=== PATIENT | male | born 1935 | race Caucasian/White ===

== ENCOUNTER 2017-01-01 11:14 | Inpatient (IN) | payer OTHER ==
[2016-12-30 20:47] LABS: BASOPHILS 0.5 %; BASOPHILS ABSOLUTE 0.04 10/3/uL (0.0-0.16); EOSINOPHILS 2.8 %; EOSINOPHILS ABSOLUTE 0.23 10/3/uL (0.0-0.53); IMMATURE GRANULOCYTES ABSOLUTE 0.08 10/3/uL (0.0-0.11); LYMPHOCYTES 27.3 %; LYMPHOCYTES ABSOLUTE 2.26 10/3/uL (0.67-4.30); MEAN CORPUS HGB CONC 35.2 g/dL (32.0-36.0); MEAN CORPUSCULAR HEMOGLOB 33.6 pg (26.0-34.0); MEAN CORPUSCULAR VOLUME 95.3 fL (80-100); MEAN PLATELET VOLUME 13.2 fL (9.2-13.0); MONOCYTES 11.1 %; MONOCYTES ABSOLUTE 0.92 10/3/uL (0.21-1.20); NEUTROPHILS 57.3 %; NEUTROPHILS ABSOLUTE 4.75 10/3/uL (2.02-8.40); RBC DISTRIBUTION WIDTH 13.8 % (12.0-16.0); WHITE BLOOD CELLS 8.3 10/3/uL (4.5-10.5)
[2016-12-30 20:49] LABS: HEMATOCRIT 42.9 % (40.0-51.0); HEMOGLOBIN 15.1 g/dL (13.6-17.8); MANUAL DIFF NO %; PLATELET COUNT 185 10/3/uL (150-400)
[2016-12-30 20:55] LABS: BUN (BLOOD UREA NITROGEN) 17 MG/DL (6-23); CALCIUM, SERUM 8.8 MG/DL (8.5-10.4); CHLORIDE, SERUM 104 MMOL/L (96-112); CO2 (CARBON DIOXIDE) 27 MMOL/L (24-34); CREATININE 1.06 MG/DL (0.70-1.30); GFR AFRICAN AMERICAN 75 ML/MIN (>=60); GFR NON AFRICAN AMERICAN 65 ML/MIN (>=60); GLUCOSE, SERUM 107 MG/DL (60-99); POTASSIUM, SERUM 4.3 MMOL/L (3.5-5.3); SODIUM, SERUM 142 MMOL/L (135-148)
[2016-12-30 22:31] LABS: LYMPHOCYTES 37 %; LYMPHOCYTES ABSOLUTE (CALC) 3.07 10/3/uL (0.67-4.30); MONOCYTES 5 %; MONOCYTES ABSOLUTE (CALC) 0.42 10/3/uL (0.21-1.20); NEUTROPHILS ABSOLUTE (CALC) 4.81 10/3/uL (2.02-8.40); PLATELET ESTIMATE ADQ (ADEQUATE); SEGMENTED NEUTROPHIL (0) 58 %; TOTAL NUCLEATED CELLS 100
[2016-12-30 22:32] LABS: RBC MORPHOLOGY NORM (NORMAL)
--- NOTE | ~2017-01-01 | DS ---
Discharge Summary [facility] [address] [place]. 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 SECONDARY DIAGNOSIS: Diet-controlled diabetes mellitus. REASON FOR ADMISSION: This is an 81-year-old male underwent a 4-hour surgery for removal of a parotid malignancy and a selective neck dissection. He was admitted for pain control and monitoring for bleeding. During his hospital course, the patient demonstrated full facial nerve function. Pain was controlled easily with oral pain medicines. He began tolerating a soft mechanical diet the day after surgery, and is ambulatory. His OVI drain is putting out serosanguineous fluid, and his incisions are healing well. His discharge medication list was reviewed and signed. I spoke with the family. As far as plan of care, the patient is able to get the incision wet with a shower, but not soak it in a bathtub. I asked them to keep it covered with Vaseline. We taught them drain care prior to discharge. The drain, I was planning to be removed in the clinic next week. Postoperative appointment was discussed and will be next week with me in my office, at that time, we will remove the drain and the lisa. DISCHARGE DIET: Soft mechanical. DISCHARGE ACTIVITY: Lift nothing heavier than 10 pounds. PS/MODL James Ayala MD / [id number] CC: James Ayala MD
--- NOTE | ~2017-01-01 | OP ---
Record Of Operation [facility] [address] [facility] [place]. [address] NAME: RUPERTO GABRIEL : 34 STATUS : ADM IN [facility]#: [id number] AGE: 81 ADM/REG DATE : 01/01/17 MR#: [id number] REPORT SERV DATE: 01/01/17 DICTATED BY: JAMES AYALA DATE: 01/01/17 REPORT STATUS : Draft TRANSCRIBED BY: PARISH DATE: 01/01/17 DATE OF PROCEDURE: 01/01/2017 SERVICE: Otolaryngology. PREOPERATIVE DIAGNOSIS: Right parotid malignancy. POSTOPERATIVE DIAGNOSIS: Right parotid malignancy. PROCEDURE: Right superficial parotidectomy with modified radical neck dissection, dissected levels 1 through 3. STATEMENT OF MEDICAL NECESSITY: This is an 81-year-old male, presented to my office with a three-month history of growing parotid mass. 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 Given the findings, I recommended the above surgery. The patient was discussed with the tumor board and this was the overall recommendation. The patient had been seen by radiation oncologist, PET scan had been performed prior to surgery as well, did not show any metastatic disease and it was localized to the tumor. The neck dissection was deemed as appropriate given the malignancy. OPERATION: 1. Right superficial parotidectomy. 2. Selective neck dissection, levels 1 through 3. GROVE WORKER: Rhea. ANESTHESIA: General endotracheal anesthesia. ESTIMATED BLOOD LOSS: 30 mL. SPECIMENS: 1. Right parotidectomy. 2. Level 1B. 3. Level 2B and level 2A. 4. Level 3B and 3A. COMPLICATIONS: None. FINDINGS: The patient's facial nerve was tracked out after the dissection was completed, stimulation of the trunk of the facial nerve resulted in twitches in all three zones of the facial nerve including the zygomatic, buccal, mental, and marginal mandibular and frontal. The tumor was very thick with some surrounding desmoplastic change. It was directly over a branch that when stimulated, stimulated the buccal nerve. This had to be sacrificed as it was adherent to the tumor, however, the patient did still stimulate the buccal nerve regardless of this, it was sectioned very distal in the parotid gland. The neck dissection went well. The lingual nerve, the hypoglossal nerve, and accessory nerve were all found and Record Of Operation [facility] [address] [facility] [place]. [address] NAME: RUPERTO GABRIEL : 34 STATUS : ADM IN PAT#: [id number] AGE: 81 ADM/REG DATE : 01/01/17 MR#: [id number] REPORT SERV DATE: 01/01/17 DICTATED BY: JAMES AYALA DATE: 01/01/17 REPORT STATUS : Draft TRANSCRIBED BY: MODL DATE: 01/01/17 preserved. There were no grossly abnormal lymph nodes during the dissection statement of medical necessity as above. STATEMENT OF OPERATION: The patient was brought to the operating room in supine position, transferred to the operating table. All pressure points were padded and general endotracheal anesthesia was established. His neck was placed in slight extension and turned to the left. The NIM monitor was used. The NIM monitors were placed in the orbicularis oculi and orbicularis yeimi and grounded and they were functioning well before and throughout the surgery. An incision was marked out in a modified Titi fashion down the pretracheal crease and around in standard hockey-stick for neck dissection. It was injected with 8 mL of 1% lidocaine with epinephrine. The patient was then prepped and draped in usual fashion. A 15 blade was used to incise along the marked incision through the level of platysma, a superior flap was elevated in the subplatysmal and sub-SMAS plane fully exposing the parotid gland. Next, the soft tissue was dissected anteriorly away from the tragus down in the tympanomastoid groove. Wide dissection was performed down to the digastric muscle so that good visualization could be had. The nerve was found as it came out of the stylomastoid foramen. The parotid gland was then dissected off carefully starting at the superior branch. This was primarily where the tumor was located. As I moved off the superior branch and went down the inferior branch, I found the marginal mandibular nerve and dissected it out throughout its length. The parotid gland was removed. There was a single branch that was attached to the undersurface of the nerve that was sectioned and kept with the nerve. It stimulated the buccal region. After the parotid gland was completely removed, a stimulation of the trunk revealed that all facial muscles appeared to be moving well. Next, selective neck dissection was performed. The soft tissue plane was developed between the digastric and the sternocleidomastoid muscle. The accessory nerve was identified, level 2b was dissected out carefully and dunked under the accessory nerve. Next, the lymph node packet between the base of the neck, the sternocleidomastoid, and the jugular vein were gently dissected off the floor of the neck above the level of the sympathetic nerve branches. It was dissected out over the internal jugular vein down to the level of the omohyoid muscle. I did not section the omohyoid muscle. The lymph node pack was then further developed over the anterior neck including the fiber fatty tissue overlying the strap muscles. Then, with the marginal mandibular nerve retracted superiorly, I dissected along the border of the mandible fully exposing the anterior belly of the digastric and mylohyoid muscle. Then, the mylohyoid muscle was retracted anteriorly. The submandibular gland level 2b lymph pocket was dissected out preserving the lingual nerve, also preserving the hypoglossal nerve. Once this was removed, the border along the posterior belly gastric was developed and the remainder of the lymph node dissection was removed. It was into different parts and passed off for permanent section. During the dissection of the parotid, I did remove a single deep lymph node, was in the deep parotid. I sent this for frozen and it was found to be benign. I also removed a separate tail of parotid node and sent it separately for permanent evaluation. The wound was irrigated thoroughly. Hemostasis was obtained with a bipolar. A Harmonic scalp was used throughout most of the dissection. A 10 flat fully perforated drain was placed in the base of the right neck. The skin was then closed in three layers first closing the platysma and SMAS layer with interrupted buried 3-0 Vicryl sutures followed by the deep dermal layer with interrupted buried 4-0 Vicryl sutures. Finally, the skin was reapproximated with skin lisa all the way up to the ear. The preauricular incision was closed with 5-0 fast absorbing gut Record Of Operation [place] [id number] [facility] [place]. [address] NAME: RUPERTO GABRIEL : 34 STATUS : ADM IN PAT#: [id number] AGE: 81 ADM/REG DATE : 01/01/17 MR#: [id number] REPORT SERV DATE: 01/01/17 DICTATED BY: JAMES AYALA DATE: 01/01/17 REPORT STATUS : Draft TRANSCRIBED BY: PARISH DATE: 01/01/17 sutures. The drain held good suction on its own with bulb suction at the end of the case. The wound was dressed with bacitracin and a drain sponge was applied underneath the drain. The drain was secured with a 2-0 silk stitch. This concluded the case. I also decided to place a Dobbhoff feeding tube in the left side. This was done down to 70 cm, it was affixed to his nose with a standard Dobbhoff bandage. He tolerated the procedure well. He was turned over to Anesthesia where he awoke, was extubated, and transferred to the PACU in stable condition. PS/PARISH James Ayala MD / [id number] CC: James Ayala MD
[~2017-01-01 11:14] MED LIST: GLUCPH PO; LIPITOR10 PO; PRILO PO; PROZAC PO; ROXICODONE15 MG PO; UROXATRAL PO
[2017-01-02 06:08] LABS: BASOPHILS 0 %; EOSINOPHILS 0 %; HEMATOCRIT 38.7 % (40.0-51.0); HEMOGLOBIN 13.4 g/dL (13.6-17.8); IMMATURE GRANULOCYTES 0.2 %; IMMATURE GRANULOCYTES ABSOLUTE 0.03 10/3/uL (0.0-0.11); LYMPHOCYTES 8.3 %; LYMPHOCYTES ABSOLUTE 1.08 10/3/uL (0.67-4.30); MANUAL DIFF NO %; MEAN CORPUS HGB CONC 34.6 g/dL (32.0-36.0); MEAN CORPUSCULAR HEMOGLOB 32.8 pg (26.0-34.0); MEAN CORPUSCULAR VOLUME 94.6 fL (80-100); MEAN PLATELET VOLUME 10.3 fL (9.2-13.0); MONOCYTES 7.8 %; MONOCYTES ABSOLUTE 1.01 10/3/uL (0.21-1.20); NEUTROPHILS 83.7 %; NEUTROPHILS ABSOLUTE 10.91 10/3/uL (2.02-8.40); PLATELET COUNT 222 10/3/uL (150-400); RBC DISTRIBUTION WIDTH 13.6 % (12.0-16.0); RED CELL COUNT 4.09 10/6/uL (4.7-6.1)
[2017-01-02 07:03] LABS: BUN (BLOOD UREA NITROGEN) 17 MG/DL (6-23); CHLORIDE, SERUM 104 MMOL/L (96-112); CO2 (CARBON DIOXIDE) 25 MMOL/L (24-34); CREATININE 1.27 MG/DL (0.70-1.30); GFR AFRICAN AMERICAN 61 ML/MIN (>=60); GFR NON AFRICAN AMERICAN 52 ML/MIN (>=60); GLUCOSE, SERUM 212 MG/DL (60-99); POTASSIUM, SERUM 4.7 MMOL/L (3.5-5.3); SODIUM, SERUM 140 MMOL/L (135-148)
[2017-01-03 05:49] LABS: BASOPHILS 0.2 %; BASOPHILS ABSOLUTE 0.02 10/3/uL (0.0-0.16); EOSINOPHILS 0.3 %; EOSINOPHILS ABSOLUTE 0.04 10/3/uL (0.0-0.53); HEMATOCRIT 36.8 % (40.0-51.0); HEMOGLOBIN 12.8 g/dL (13.6-17.8); IMMATURE GRANULOCYTES 0.2 %; IMMATURE GRANULOCYTES ABSOLUTE 0.02 10/3/uL (0.0-0.11); LYMPHOCYTES 25.7 %; LYMPHOCYTES ABSOLUTE 3.09 10/3/uL (0.67-4.30); MANUAL DIFF NO %; MEAN CORPUS HGB CONC 34.8 g/dL (32.0-36.0); MEAN CORPUSCULAR VOLUME 94.8 fL (80-100); MEAN PLATELET VOLUME 10.1 fL (9.2-13.0); MONOCYTES 13.1 %; MONOCYTES ABSOLUTE 1.57 10/3/uL (0.21-1.20); NEUTROPHILS 60.5 %; NEUTROPHILS ABSOLUTE 7.29 10/3/uL (2.02-8.40); PLATELET COUNT 209 10/3/uL (150-400); RBC DISTRIBUTION WIDTH 13.5 % (12.0-16.0); RED CELL COUNT 3.88 10/6/uL (4.7-6.1)
[2017-01-03 06:02] LABS: BUN (BLOOD UREA NITROGEN) 17 MG/DL (6-23); CALCIUM, SERUM 8.1 MG/DL (8.5-10.4); CHLORIDE, SERUM 107 MMOL/L (96-112); CO2 (CARBON DIOXIDE) 29 MMOL/L (24-34); CREATININE 1.17 MG/DL (0.70-1.30); GFR AFRICAN AMERICAN 67 ML/MIN (>=60); GFR NON AFRICAN AMERICAN 58 ML/MIN (>=60); POTASSIUM, SERUM 4.1 MMOL/L (3.5-5.3); SODIUM, SERUM 144 MMOL/L (135-148)
[2017-01-03 06:04] LABS: GLUCOSE, SERUM 145 MG/DL (60-99)
[2017-01-03] MEDS ORDERED: PCET PO (12:08)
== END 2017-01-03 13:14 | disposition home or self-care (01) | DRG 130 ==
LOC: SDC/OF 11:14 → PACU 19:02 → 4SO 21:25
PROVIDERS: Otolaryngology; Specialist
PROC: 0CB80ZZ Excision of Right Parotid Gland, Open Approach (ICD-10-PCS; principal; 2017-01-01 13:00)
PROC: 07T10ZZ Resection of Right Neck Lymphatic, Open Approach (ICD-10-PCS; principal; 2017-01-01 13:00)
DX: C07 Malignant neoplasm of parotid gland (principal); E11.9 Type 2 diabetes mellitus without complications; H91.90 Unspecified hearing loss, unspecified ear; K21.9 Gastro-esophageal reflux disease without esophagitis; N40.0 Benign prostatic hyperplasia without lower urinary tract symptoms; E78.5 Hyperlipidemia, unspecified; Z72.0 Tobacco use; Z86.11 Personal history of tuberculosis; G89.29 Other chronic pain; M54.9 Dorsalgia, unspecified; Z98.1 Arthrodesis status
CPT/HCPCS: 36415; 71010; 71020; 74000; 80048; 82962; 85025; 88305; 88307; 88313; 88331; 88341; 88342; 88360; 92610-GN; 93005; A9270-GY; J0690; J1630; J2270; J2405; J2710; J3010